=== PATIENT | male | born 1955 | race Caucasian/White ===

== ENCOUNTER 2024-02-03 14:57 | Inpatient (IN) | payer BC, SELFPAY ==
[2024-02-03] VITALS (8 sets, daily range): BP systolic 115–160; BP diastolic 69–98; BMI 36.2
[2024-02-03] MEDS: MOTRIN 400 MG PO (09:44)
[2024-02-03 09:46] LABS: % Basophils 0.4 % (0-2); % Eosinophils 0.7 % (0-6); % Immature Granulocytes 0.3 % (0-0.5); % Lymphocytes 5.4 % (20.5-51.1); % Monocytes 4.5 % (1.7-9.3); % Neutrophils 88.7 % (42.2-75.2); Absolute Basophils 0.1 10^3/uL (0-0.2); Absolute Eosinophils 0.1 10^3/uL (0-0.7); Absolute Immature Granulocytes 0.1 10^3/uL (0-0.05); Absolute Lymphocytes 0.8 10^3/uL (1.2-3.4); Absolute Monocytes 0.7 10^3/uL (0.1-0.6); Absolute Neutrophils 13.9 10^3/uL (1.4-6.5); Hematocrit 44.6 % (39.0-52.0); Mean Corp Hgb Conc. 33.6 g/dL (33.0-37.0); Mean Corpuscular Hgb 28.5 pg (27.0-31.0); Mean Corpuscular Volume 84.8 fL (80.0-94.0); Nucleated Red Blood Cells % 0 % (-); Platelet Count 243 10^3/uL (130-400); Red Blood Cell Count 5.26 10^6/uL (4.70-6.10); Red Cell Dist. Width 18.4 % (11.5-14.5); White Blood Cell Count 15.7 10^3/uL (4.8-10.8)
[2024-02-03] MEDS: NSS 500 IV (09:47)
[2024-02-03 09:49] LABS: Urine Albumin Negative (Neg - Trace); Urine Bilirubin Negative (Negative); Urine Character Clear (Clear); Urine Color Yellow; Urine Glucose Negative (Negative); Urine Ketone Negative (Negative); Urine Leukocyte Negative (Negative); Urine Nitrite Negative (Negative); Urine Occult Blood Negative (Negative); Urine Specific Gravity 1.015 (<1.030); Urine Urobilinogen Negative (Neg - 1+)
[2024-02-03 09:58] LABS: Lactic Acid 3.2 mmol/L (0.7-2.0)
[2024-02-03 10:07] LABS: Blood Urea Nitrogen 23 mg/dl (9-20); Calcium 9.5 mg/dl (8.4-10.2); Carbon Dioxide 29 mmol/L (22-30); Chloride 103 mmol/L (98-107); Estimated Creatinine Clearance 93 ml/min; Glucose 128 mg/dl (70-99); Sodium 139 mmol/L (135-145); eGFR > 60.00
[2024-02-03 10:07] LABS: COVID-19 Antigen Negative (Negative)
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
[2024-02-03] MEDS: MAXIPIME 1000 MG IV (13:23)
--- NOTE | 2024-02-03 14:00 | PHANOTE ---
med rec note- patient did answer mot question about his medication properly but he started to not make sense at the end of the list. did try to call the number for the spouse on file but he went straight to vice mail and the second time I called it
hung up
[2024-02-03 14:02] LABS: Lactic Acid 2.2 mmol/L (0.7-2.0)
[2024-02-03] MEDS: ROXICODONE 20 MG PO (14:23)
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
[2024-02-03] MEDS: VANCOCIN 540 MG IV (15:11)
[2024-02-03] MEDS: NSS 1000 IV ×2 (17:53→23:43)
[2024-02-03] MEDS: LIPITOR 40 MG PO (17:58)
[2024-02-03] MEDS: SINGULAIR 10 MG PO (17:59)
[2024-02-03] MEDS: LOVENOX 40 MG SC (17:59)
--- NOTE | 2024-02-03 19:22 | PTCARENOTE ---
Received patient this afternoon from ED. Pt oriented to room. IV fatouo hanging from ED. Made patient comfortable. Cont to assess patient status.
[2024-02-03] MEDS: SYMBICORT 160/4.5 MCG INHALER 2 PUFF INH (19:31)
[2024-02-03] MEDS: VIBRAMYCIN 100 MG PO (21:07)
[2024-02-03] MEDS: ROXICODONE 40 MG PO (21:07)
[2024-02-03] MEDS: LYRICA 100 MG PO (22:37)
[2024-02-04] MEDS: SYNTHROID 100 MCG PO (05:27)
[2024-02-04 07:30] VITALS: BP 114/65
--- NOTE | 2024-02-04 07:36 | W.PN.HOSP.TC ---
Addendum entered and electronically signed by Santiago Irene MD 02/05/24 09:31:
please see same day update note for additional details. Read reviewed and agree.
Yonny Irene MD
Original Note:
Today's Communication/Plan
-
.
Assessment / Plan
Assessment / Plan
Sepsis
- secondary to pneumonia as evidenced by chest x-ray, CT and clinical presentation
� Pending blood cultures
� Elevated lactic acid, downtrending. Patient on maintenance IVF
� Continue antibiotics: IV Rocephin and Doxycycline
� Due to history of thyroid cancer and thyroidectomy procalcitonin may show minimal value
Acute Hypoxemic Respiratory Failure
- resolved
Asthma
� Continue Respimat, fluticasone, montelukast
Hyperlipidemia
� Continue atorvastatin
Chronic leg pain
� Continue oxycodone and Lyrica
- Patient on 40 mg twice daily
- PDMP verified (2 20 mg pills twice daily Home meds)
-Continue home meds
GERD
� Continue omeprazole
DVT prophylaxis
� Start Lovenox 40 PMD
Rheumatoid arthritis/psoriatic arthritis
� Continue colchicine
Chest CT: No central pulmonary embolism. Suboptimal evaluation of the segmental and subsegmental pulmonary arterial vasculature due to suboptimal opacification. Bilateral multifocal pneumonia. Dilated pulmonary artery trunk in the setting of PAH.
Chest chest x-ray: Suspected left lung pneumonia with likely some degree of superimposed mild interstitial pulmonary edema.
FULL
Anticipated Discharge: 24 - 48 hours
Subjective/Interval History
-
Date of Service: February 04, 2024
Patient is a 68-year-old male with 1 week of fever admitted to the hospital for sepsis secondary to pneumonia. Patient states that he is feeling significantly better today. He is feeling conscious and not confused. He states he recalls little of
what happened during his admission yesterday. He he states he has no headaches, no nausea, no vomiting, no diarrhea, no stomach pain, no chest pain, no shortness of breath, no numbness or tingling in extremities, or dizziness. He states his
appetite has been good. He states he would like to stay 1 more day to improve strength and have opportunity to mobilize prior to discharge home.
Objective Data
-
Labs:
Laboratory Results
02/04/24
06:00
WBC Pending
Hgb Pending
Hct Pending
Plt Count Pending
Sodium Pending
Potassium Pending
Chloride Pending
Carbon Dioxide Pending
BUN Pending
Creatinine Pending
Glucose Pending
Calcium Pending
Total Bilirubin Pending
AST Pending
ALT Pending
Alkaline Phosphatase Pending
Vital Signs:
Vital Signs
Temp Pulse Resp BP Pulse Ox
97.5 F 74 20 115/69 98
02/03/24 23:00 02/03/24 23:00 02/03/24 23:00 02/03/24 23:00 02/04/24 04:14
I&O
02/03/24 02/04/24 02/05/24
06:59 06:59 06:59
Intake Total 1610 / 1610
Output Total 200 / 200
Balance 1410 / 1410
Review of Systems
-
History Source: Patient
Constitutional: Reports No Symptoms
EENT: Reports No Symptoms Reported
Respiratory: Reports No Symptoms
Cardiac: Reports No Symptoms
Abdomen/GI: Reports No Symptoms
Musculoskeletal: Reports Muscle Pain
Skin: Reports No Symptoms
Neuro: Reports No Symptoms
Physical Exam
-
General: Well Developed, Well Nourished, No Apparent Distress and Comfortable
HEENT: Normocephalic, Atraumatic and Moist Mucous Membranes
Respiratory: Crackles and Non Labored Respirations
Cardiac: Murmur and Rub
GI: Soft, Nontender, Nondistended and Normal Bowel Sounds
Musculoskeletal: Other (Currently not mobile)
Skin: Warm and Dry
Neuro: AO x 3, No Motor Deficits, Central Nerve's Intact and No Sensory Deficits
Psych: Calm
Data Reviewed
-
Labs: Labs Reviewed by me and Discussed with Physician
Old Records: Reviewed
[2024-02-04] MEDS: SYMBICORT 160/4.5 MCG INHALER 2 PUFF INH ×2 (08:32→19:46)
[2024-02-04] MEDS: ROCEPHIN 1000 MG IV (09:33)
[2024-02-04] MEDS: COLCHICINE 0.6 MG PO (09:33)
[2024-02-04] MEDS: VIBRAMYCIN 100 MG PO ×2 (09:33→21:06)
[2024-02-04] MEDS: ROXICODONE 40 MG PO ×2 (09:33→21:06)
[2024-02-04] MEDS: PROTONIX 40 MG PO (09:33)
[2024-02-04] MEDS: LYRICA 100 MG PO ×2 (09:33→21:06)
[2024-02-04] MEDS: NSS 1000 IV ×2 (09:34→20:08)
[2024-02-04] MEDS: STERILE WATER FOR INJECTION 10 ML IV (09:40)
--- NOTE | 2024-02-04 10:03 | PN.CDI ---
CDI
- -
CDI:
Physician Documentation Request
Admit Date: 02/03/24 14:57
Dear Doctor Ashley,
Patient admitted for sepsis.
02/02 Hospitalist PN: 'cont standing oxycodone reviewed PDMP 40mg PO BID...Chronic leg pain � Continue oxycodone and Lyrica'
Oxycodone 40 mg PO BID administered as prescribed
If possible, please provide further specificity as outlined below:
Opioid dependence
Opioid use
Other
Use of terms such as suspected, likely, concern for, or probable (associated with a specific diagnosis that is being evaluated, monitored, or treated as if it exists) are acceptable and can be coded in the inpatient setting, when documented at the
time of discharge.
Thank you,
Qiana Hartmann RN, BSN
CDI Specialist
Available via [facility] text
Please use your independent medical judgment in providing your response.
[2024-02-04 11:00] LABS: % Basophils 0.2 % (0-2); % Eosinophils 1.4 % (0-6); % Immature Granulocytes 0.4 % (0-0.5); % Lymphocytes 9.2 % (20.5-51.1); % Monocytes 5.1 % (1.7-9.3); % Neutrophils 83.7 % (42.2-75.2); Absolute Eosinophils 0.2 10^3/uL (0-0.7); Absolute Immature Granulocytes 0.1 10^3/uL (0-0.05); Absolute Lymphocytes 1.5 10^3/uL (1.2-3.4); Absolute Monocytes 0.8 10^3/uL (0.1-0.6); Absolute Neutrophils 13.3 10^3/uL (1.4-6.5); Hemoglobin 12.8 g/dL (13.0-18.0); Mean Corpuscular Hgb 28.9 pg (27.0-31.0); Mean Corpuscular Volume 90.3 fL (80.0-94.0); Mean Platelet Volume 9.8 fL (7.4-10.4); Nucleated Red Blood Cells % 0 % (-); Platelet Count 186 10^3/uL (130-400); Red Blood Cell Count 4.43 10^6/uL (4.70-6.10); Red Cell Dist. Width 18.2 % (11.5-14.5); White Blood Cell Count 15.9 10^3/uL (4.8-10.8)
[2024-02-04 11:32] LABS: ALT (SGPT) 39 U/L (0-50); AST (SGOT) 35 U/L (17-59); Albumin 3.6 g/dl (3.5-5.0); Alkaline Phosphatase 65 U/L (38-126); Blood Urea Nitrogen 18 mg/dl (9-20); Calcium 8.7 mg/dl (8.4-10.2); Carbon Dioxide 29 mmol/L (22-30); Chloride 103 mmol/L (98-107); Estimated Creatinine Clearance 115 ml/min; Glucose 151 mg/dl (70-99); Potassium 3.7 mmol/L (3.5-5.1); Sodium 137 mmol/L (135-145); Total Bilirubin 0.8 mg/dl (0.2-1.3); Total Protein 6.3 g/dl (6.3-8.2); eGFR > 60.00
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
[2024-02-04 15:30] VITALS: BP 163/90
[2024-02-04] MEDS: LOVENOX 40 MG SC (17:41)
[2024-02-04] MEDS: LIPITOR 40 MG PO (17:41)
[2024-02-04] MEDS: SINGULAIR 10 MG PO (17:42)
[2024-02-04 19:55] VITALS: BP 135/69
[2024-02-04 23:20] VITALS: BP 125/73
--- NOTE | 2024-02-04 23:47 | W.PN.UPDATE ---
Addendum entered and electronically signed by Santiago Irene MD 02/04/24 23:53:
Attending Addendum-
I saw and evaluated the patient. I reviewed the resident�s note and agree with findings and plan as documented in the resident�s note. S- patient feels improved, but still weak. Doesnt remember events of yesterday. No new complaints. Full 12 point
ROS reviewed and negative except as documented Exam- vitals reviewed in EMR GEN-NAD heart RRR lungs decreased BS @ bases abd soft LE no edema Neuro AAO x 3
# Sepsis secondary to PNA
- CT chest personally reviewed - multifocal
- cefepime and vanco given in ed
- cont Rocephin and doxycycline day 2
- blood cx NGTD
- elevated lactate start IVF- trending down
# Acute Hypoxemic Respiratory Failure
- wean o2 for sats > 94%
# Hypothyroidism- cont levothyroxine
# Lupus/RA- monitor closely for exacerbation
# Gout- cont colchicine
# Asthma- cont combivent not in AE
# HLD- cont atorvastatin
# GERD- cont omeprazole
# Chronic Pain with opioid dependence- cont standing oxycodone reviewed PDMP 40mg PO BID
Dispo eventual DC home with
Time spent coordinating care, review of plan of care with resident, personally reviewed records in EMR, med rec, consults, notes, labs, radiology, d/w nursing- 53 mins
Original Note:
[2024-02-05] VITALS (7 sets, daily range): BP systolic 99–161; BP diastolic 57–89; O2SAT 86
[2024-02-05] MEDS: MOTRIN 400 MG PO (01:10)
[2024-02-05] MEDS: NSS 1000 IV (05:41)
[2024-02-05] MEDS: SYNTHROID 100 MCG PO (05:41)
[2024-02-05] MEDS: SYMBICORT 160/4.5 MCG INHALER 2 PUFF INH ×2 (07:45→19:55)
--- NOTE | 2024-02-05 08:03 | W.PN.HOSP.TC ---
Addendum entered and electronically signed by Santiago Irene MD 02/05/24 21:54:
Attending Addendum-
I saw and evaluated the patient. I reviewed the resident�s note and agree with findings and plan as documented in the resident�s note. S- patient complains of cough and weakness.has pleuritic chest pain. Full 12 point ROS reviewed and negative
except as documented Exam- vitals reviewed in EMR GEN-NAD heart RRR lungs decreased BS @ bases abd soft LE no edema Neuro AAO x 3
# Sepsis secondary to PNA
- CT chest personally reviewed - multifocal PNA
- cefepime and vanco given in ed
- cont Rocephin and doxycycline day 3
- blood cx NGTD
- elevated lactate- trending down
- DC IVF
- start duonebs
# Acute Hypoxemic Respiratory Failure
- wean o2 for sats > 94%
# Hypothyroidism- cont levothyroxine
# Lupus/RA- monitor closely for exacerbation
# Gout- cont colchicine
# Asthma- cont combivent not in AE start duonebs
# HLD- cont atorvastatin
# GERD- cont omeprazole
# Chronic Pain with opioid dependence- cont standing oxycodone reviewed PDMP 40mg PO BID
Dispo eventual DC home with not amenable to SNF likely in 24-48 hours
Time spent coordinating care, review of plan of care with resident, personally reviewed records in EMR, med rec, consults, notes, labs, radiology, d/w nursing- 55 mins
Original Note:
Today's Communication/Plan
-
.
Assessment / Plan
Assessment / Plan
Patient is a 68-year-old male past medical history of asthma, hypertension, hypothyroidism, lupus, gastric bypass, thyroid cancer, GERD presenting to the hospital after 1 week of fever, fatigue, cough, rhinorrhea, nausea, vomiting, lethargy,
disorientation.
Sepsis
- secondary to pneumonia as evidenced by chest x-ray, CT and clinical presentation
� Pending blood cultures
� Elevated lactic acid, downtrending. Patient on maintenance IVF
� Continue antibiotics: IV Rocephin and Doxycycline
� Due to history of thyroid cancer and thyroidectomy procalcitonin may show minimal value
Acute Hypoxemic Respiratory Failure
-Patient reported shortness of breath overnight. Oxygen increased to 6 L at 1 point. Currently at 2 L
� Patient wheezing. Crackles heard.
-Per Wells criteria, patient is low risk for PE. Continue to monitor
� Patient given DuoNebs today.
Cardiac Murmur
- new murmur appreciated in PE
- patient unaware of its presence prior to admission
- follow up outpatient with [facility] for repeat echo
Asthma
� Continue Respimat, fluticasone, montelukast
Hyperlipidemia
� Continue atorvastatin
Chronic leg pain
� Continue oxycodone and Lyrica
- Patient on 40 mg twice daily
- PDMP verified (2 20 mg pills twice daily Home meds)
-Continue home meds
GERD
� Continue omeprazole
DVT prophylaxis
� Start Lovenox 40 PMD
Rheumatoid arthritis/psoriatic arthritis
� Continue colchicine
DC Dispo likely tomorrow. Pending social work consult. [place] home to
Chest CT: No central pulmonary embolism. Suboptimal evaluation of the segmental and subsegmental pulmonary arterial vasculature due to suboptimal opacification. Bilateral multifocal pneumonia. Dilated pulmonary artery trunk in the setting of PAH.
Chest chest x-ray: Suspected left lung pneumonia with likely some degree of superimposed mild interstitial pulmonary edema.
FULL
Anticipated Discharge: Within 24 hours
Subjective/Interval History
-
Date of Service: February 05, 2024
Patient is a 68-year-old male with 1 week of fever admitted to the hospital for sepsis secondary to pneumonia. Patient states that he is feeling significantly better today. He is feeling conscious and not confused. Patient says he is feeling
about the same as yesterday. He states he has significant left-sided chest pain that radiates to his neck when he takes deep breaths. He reports overnight shortness of breath and oxygen was increased and then decreased back to 2 L this morning as
well as feeling febrile last night. Per nursing and notes, patient was afebrile. He states he ambulated yesterday for the first time since admission. He reports no headaches, dizziness, nausea, vomiting, diarrhea, abdominal pain, numbness and
tingling in the extremities or new symptoms.
Objective Data
-
Labs:
Laboratory Results
02/05/24
06:00
WBC Pending
Hgb Pending
Hct Pending
Plt Count Pending
Sodium Pending
Potassium Pending
Chloride Pending
Carbon Dioxide Pending
BUN Pending
Creatinine Pending
Glucose Pending
Calcium Pending
Total Bilirubin Pending
AST Pending
ALT Pending
Alkaline Phosphatase Pending
Vital Signs:
Vital Signs
Temp Pulse Resp BP Pulse Ox
98 F 80 14 126/77 97
02/05/24 07:41 02/05/24 07:47 02/05/24 07:47 02/05/24 07:41 02/05/24 07:41
I&O
02/04/24 02/05/24 02/06/24
06:59 06:59 06:59
Intake Total 1610 / 1610 3780 / 3780
Output Total 200 / 200 2049 / 2049
Balance 1410 / 1410 1730 / 1730
Review of Systems
-
History Source: Patient
Constitutional: Reports Fatigue and Weakness
EENT: Reports No Symptoms Reported
Respiratory: Reports Trouble Breathing and Wheezing
Cardiac: Reports Chest Pain (With inspiration, left-sided)
Abdomen/GI: Reports No Symptoms
Musculoskeletal: Reports No Symptoms
Skin: Reports No Symptoms
Neuro: Reports No Symptoms
Physical Exam
-
General: Well Developed, Well Nourished and Obese
HEENT: Normocephalic, Atraumatic, Moist Mucous Membranes and PERRLA
Respiratory: Wheezes, Crackles and Accessory Resp Muscle Use
Cardiac: Murmur
GI: Soft, Nontender, Nondistended and Normal Bowel Sounds
Neuro: AO x 3, No Motor Deficits and Central Nerve's Intact
Psych: Calm
Data Reviewed
-
Total Time Spent with Patient (in minutes): 30
Labs: Labs Reviewed by me and Discussed with Physician
Old Records: Reviewed
[2024-02-05] MEDS: ROCEPHIN 1000 MG IV (08:37)
[2024-02-05] MEDS: PROTONIX 40 MG PO (08:37)
[2024-02-05] MEDS: VIBRAMYCIN 100 MG PO ×2 (08:37→20:09)
[2024-02-05] MEDS: COLCHICINE 0.6 MG PO (08:37)
[2024-02-05] MEDS: LYRICA 100 MG PO ×2 (08:37→20:09)
[2024-02-05] MEDS: ROXICODONE 40 MG PO ×2 (08:37→20:09)
[2024-02-05] MEDS: STERILE WATER FOR INJECTION 10 ML IV (08:38)
[2024-02-05 09:13] LABS: % Basophils 0.7 % (0-2); % Eosinophils 4.6 % (0-6); % Immature Granulocytes 0.6 % (0-0.5); % Lymphocytes 20.9 % (20.5-51.1); % Neutrophils 59.2 % (42.2-75.2); Absolute Basophils 0.1 10^3/uL (0-0.2); Absolute Eosinophils 0.4 10^3/uL (0-0.7); Absolute Immature Granulocytes 0.1 10^3/uL (0-0.05); Absolute Lymphocytes 1.9 10^3/uL (1.2-3.4); Absolute Monocytes 1.2 10^3/uL (0.1-0.6); Absolute Neutrophils 5.2 10^3/uL (1.4-6.5); Hematocrit 37.3 % (39.0-52.0); Mean Corp Hgb Conc. 32.2 g/dL (33.0-37.0); Mean Corpuscular Hgb 29.2 pg (27.0-31.0); Mean Corpuscular Volume 90.8 fL (80.0-94.0); Mean Platelet Volume 10.1 fL (7.4-10.4); Nucleated Red Blood Cells % 0 % (-); Platelet Count 175 10^3/uL (130-400); Red Blood Cell Count 4.11 10^6/uL (4.70-6.10); Red Cell Dist. Width 17.9 % (11.5-14.5); White Blood Cell Count 8.8 10^3/uL (4.8-10.8)
[2024-02-05 10:30] LABS: ALT (SGPT) 33 U/L (0-50); AST (SGOT) 34 U/L (17-59); Albumin 3.4 g/dl (3.5-5.0); Alkaline Phosphatase 68 U/L (38-126); Blood Urea Nitrogen 13 mg/dl (9-20); Calcium 8.8 mg/dl (8.4-10.2); Carbon Dioxide 30 mmol/L (22-30); Chloride 105 mmol/L (98-107); Estimated Creatinine Clearance 115 ml/min; Glucose 91 mg/dl (70-99); Potassium 4.4 mmol/L (3.5-5.1); Sodium 138 mmol/L (135-145); Total Bilirubin 0.6 mg/dl (0.2-1.3); Total Protein 5.9 g/dl (6.3-8.2); eGFR > 60.00
--- NOTE | 2024-02-05 10:55 | CM ---
Met with patient at bedside; patient reported that he does not have Oxygen in the home
Plan: discharge to home when stable; will continue to monitor for needs
[2024-02-05] MEDS: DUONEB 3 ML INH (14:08)
[2024-02-05] MEDS: LIPITOR 40 MG PO (17:30)
[2024-02-05] MEDS: LOVENOX 40 MG SC (17:30)
[2024-02-05] MEDS: SINGULAIR 10 MG PO (17:31)
[2024-02-06] VITALS (7 sets, daily range): BP systolic 116–158; BP diastolic 61–88; O2SAT 85–90
[2024-02-06] MEDS: SYNTHROID 100 MCG PO (06:02)
[2024-02-06] MEDS: SYMBICORT 160/4.5 MCG INHALER 2 PUFF INH ×2 (08:07→19:39)
--- NOTE | 2024-02-06 08:14 | W.PN.HOSP.TC ---
Addendum entered and electronically signed by Santiago Irene MD 02/06/24 22:11:
Attending Addendum-
I saw and evaluated the patient. I reviewed the resident�s note and agree with findings and plan as documented in the resident�s note. S- seen walking from bathroom w/o issues. 'I think i should go tomorrow... didnt you hear i was confused
overnight and walked into the hallway?' Full 12 point ROS reviewed and negative except as documented Exam- vitals reviewed in EMR GEN-NAD heart RRR lungs decreased BS @ bases abd soft LE no edema Neuro AAO x 3
# Sepsis secondary to PNA
- CT chest- multifocal PNA
- cefepime and vanco given in ed
- cont Rocephin and doxycycline day 4
- blood cx NGTD
- elevated lactate- trending down
- DC IVF
- cont duonebs
# Acute Hypoxemic Respiratory Failure
- attempted to wean o2 for sats > 92%
- will need home o2 on DC
- scripts faxed cm made aware
# Hypothyroidism- cont levothyroxine
# Lupus/RA- monitor closely for exacerbation
# Gout- cont colchicine
# Asthma- cont combivent not in AE cont duonebs
# HLD- cont atorvastatin
# GERD- cont omeprazole
# Chronic Pain with opioid dependence- cont standing oxycodone reviewed PDMP 40mg PO BID
Dispo eventual DC home with not amenable to SNF likely in AM
Time spent coordinating care, review of plan of care with resident, personally reviewed records in EMR, med rec, consults, notes, labs, radiology, d/w nursing- 52 mins
Original Note:
Today's Communication/Plan
-
.
Assessment / Plan
Assessment / Plan
Patient is a 68-year-old male past medical history of asthma, hypertension, hypothyroidism, lupus, gastric bypass, thyroid cancer, GERD presenting to the hospital after 1 week of fever, fatigue, cough, rhinorrhea, nausea, vomiting, lethargy,
disorientation.
Sepsis
- secondary to pneumonia as evidenced by chest x-ray, CT and clinical presentation
� Pending blood cultures
� Elevated lactic acid, downtrending. Patient on maintenance IVF
� Continue antibiotics: IV Rocephin and Doxycycline
� Due to history of thyroid cancer and thyroidectomy procalcitonin may show minimal value
Acute Hypoxemic Respiratory Failure
-Patient reported shortness of breath overnight. Oxygen increased to 6 L at 1 point. Currently at 2 L
� wheezing resolved.
-Per Wells criteria, patient is low risk for PE. Continue to monitor
� Patient given DuoNebs 02/04.
- home O2 assessment pending
Cardiac Murmur
- new murmur appreciated in PE
- patient unaware of its presence prior to admission
- follow up outpatient with [place] [facility] for repeat echo
Asthma
� Continue Respimat, fluticasone, montelukast
Hyperlipidemia
� Continue atorvastatin
Chronic leg pain
� Continue oxycodone and Lyrica
- Patient on 40 mg twice daily
- PDMP verified (2 20 mg pills twice daily Home meds)
-Continue home meds
GERD
� Continue omeprazole
DVT prophylaxis
� Start Lovenox 40 PMD
Rheumatoid arthritis/psoriatic arthritis
� Continue colchicine
DC Dispo likely tomorrow. Pending social work consult. [place] home to
Chest CT: No central pulmonary embolism. Suboptimal evaluation of the segmental and subsegmental pulmonary arterial vasculature due to suboptimal opacification. Bilateral multifocal pneumonia. Dilated pulmonary artery trunk in the setting of PAH.
Chest chest x-ray: Suspected left lung pneumonia with likely some degree of superimposed mild interstitial pulmonary edema.
FULL
Anticipated Discharge: Within 24 hours
Subjective/Interval History
-
Date of Service: February 06, 2024
Patient is a 68-year-old male past medical history of asthma, hypertension, hypothyroidism, lupus, gastric bypass, thyroid cancer, GERD presenting to the hospital after 1 week of fever, fatigue, cough, rhinorrhea, nausea, vomiting, lethargy,
disorientation. Patient states that he is feeling the same as yesterday however last night had an episode of confusion where he woke up and was agitated per his recollection. He states the nursing team told him to go back to sleep.
Confusion/delirium lasted for about 30 minutes. Patient reports no headaches, nausea, vomiting, diarrhea, shortness of breath, chest pain, abdominal pain, pain in extremities.
Objective Data
-
Labs:
Laboratory Results
02/06/24
07:42
WBC Pending
Hgb Pending
Hct Pending
Plt Count Pending
Sodium Pending
Potassium Pending
Chloride Pending
Carbon Dioxide Pending
BUN Pending
Creatinine Pending
Glucose Pending
Calcium Pending
Vital Signs:
Vital Signs
Temp Pulse Resp BP Pulse Ox
98.4 F 74 16 158/88 94
02/06/24 03:00 02/06/24 08:09 02/06/24 08:09 02/06/24 03:00 02/06/24 08:09
I&O
02/05/24 02/06/24 02/07/24
06:59 06:59 06:59
Intake Total 3780 / 3780 1679 / 1680
Output Total 2049
Balance 1730 / 1730 1680 / 1680
Review of Systems
-
History Source: Patient
Constitutional: Reports Sleep Disturbance
EENT: Reports No Symptoms Reported
Respiratory: Reports Trouble Breathing (Mild) and Other (Pain with inspiration on left side)
Cardiac: Reports No Symptoms
Abdomen/GI: Reports No Symptoms
Musculoskeletal: Reports No Symptoms
Skin: Reports No Symptoms
Neuro: Reports No Symptoms
Physical Exam
-
General: Well Developed, Well Nourished, No Apparent Distress and Comfortable
HEENT: Normocephalic and Atraumatic
Respiratory: Crackles (Mild)
Cardiac: Murmur
GI: Soft, Nontender, Nondistended and Normal Bowel Sounds
Skin: Warm and Dry
Neuro: AO x 3, No Motor Deficits, Central Nerve's Intact and No Sensory Deficits
Psych: Calm
[2024-02-06 08:23] LABS: % Basophils 0.8 % (0-2); % Eosinophils 4.5 % (0-6); % Immature Granulocytes 0.2 % (0-0.5); % Monocytes 13.5 % (1.7-9.3); Absolute Basophils 0.1 10^3/uL (0-0.2); Absolute Eosinophils 0.4 10^3/uL (0-0.7); Absolute Lymphocytes 1.8 10^3/uL (1.2-3.4); Absolute Monocytes 1.2 10^3/uL (0.1-0.6); Absolute Neutrophils 5.2 10^3/uL (1.4-6.5); Hematocrit 36.9 % (39.0-52.0); Hemoglobin 11.9 g/dL (13.0-18.0); Mean Corp Hgb Conc. 32.2 g/dL (33.0-37.0); Mean Corpuscular Hgb 28.5 pg (27.0-31.0); Mean Corpuscular Volume 88.5 fL (80.0-94.0); Mean Platelet Volume 10.1 fL (7.4-10.4); Nucleated Red Blood Cells % 0 % (-); Platelet Count 199 10^3/uL (130-400); Red Blood Cell Count 4.17 10^6/uL (4.70-6.10); Red Cell Dist. Width 17.6 % (11.5-14.5); White Blood Cell Count 8.7 10^3/uL (4.8-10.8)
[2024-02-06 09:08] LABS: Blood Urea Nitrogen 14 mg/dl (9-20); Carbon Dioxide 30 mmol/L (22-30); Chloride 100 mmol/L (98-107); Estimated Creatinine Clearance 102 ml/min; Glucose 99 mg/dl (70-99); Potassium 3.9 mmol/L (3.5-5.1); Sodium 137 mmol/L (135-145); eGFR > 60.00
[2024-02-06] MEDS: ROXICODONE 40 MG PO ×2 (09:40→21:40)
[2024-02-06] MEDS: LYRICA 100 MG PO ×2 (09:41→20:51)
[2024-02-06] MEDS: PROTONIX 40 MG PO (09:41)
[2024-02-06] MEDS: STERILE WATER FOR INJECTION 10 ML IV (09:41)
[2024-02-06] MEDS: VIBRAMYCIN 100 MG PO ×2 (09:41→20:51)
[2024-02-06] MEDS: COLCHICINE 0.6 MG PO (09:41)
[2024-02-06] MEDS: ROCEPHIN 1000 MG IV (09:42)
[2024-02-06] MEDS: FLUSH (NSS) 2 FLUSH IV (09:42)
--- NOTE | 2024-02-06 13:50 | CM ---
Patient seen bedside, discussed patient qualifies for home O2. Per resident, patient will discharge tomorrow. CM will fax script/clinicals to [place] with [employer] for home O2. CM will continue to follow for all discharge planning needs.
Plan; home with home O2 pending [employer].
[2024-02-06] MEDS: LOVENOX 40 MG SC (18:05)
[2024-02-06] MEDS: LIPITOR 40 MG PO (18:05)
[2024-02-06] MEDS: SINGULAIR 10 MG PO (18:05)
[2024-02-07 03:48] VITALS: BP 147/86
[2024-02-07] MEDS: SYNTHROID 100 MCG PO (04:51)
[2024-02-07 07:35] VITALS: BP 157/90
[2024-02-07] MEDS: SYMBICORT 160/4.5 MCG INHALER 2 PUFF INH (07:40)
--- NOTE | 2024-02-07 08:01 | W.PN.HOSP.TC ---
Addendum entered and electronically signed by Santiago Irene MD 02/07/24 22:54:
Attending Addendum-
I saw and evaluated the patient. I reviewed the resident�s note and agree with findings and plan as documented in the resident�s note. S- feels back to baseline ready to go home Full 12 point ROS reviewed and negative except as documented Exam-
vitals reviewed in EMR GEN-NAD heart RRR lungs decreased BS @ bases abd soft LE no edema Neuro AAO x 3
# Sepsis secondary to PNA
- CT chest- multifocal PNA
- cefepime and vanco given in ed
- Rocephin and doxycycline day 5--> transition ot PO abx on DC
- blood cx NGTD
# Acute Hypoxemic Respiratory Failure
- attempted to wean o2 for sats > 92%
- DC home on NEW o2
- scripts faxed cm made aware
# Hypothyroidism- cont levothyroxine
# Lupus/RA- monitor closely for exacerbation
# Gout- cont colchicine
# Asthma- cont combivent not in AE
# HLD- cont atorvastatin
# GERD- cont omeprazole
# Chronic Pain with opioid dependence- cont standing oxycodone reviewed PDMP 40mg PO BID
Dispo DC home with not amenable to SNF - TODAY!
Time spent coordinating care, DC planning, review of DC plan of care with resident, transition of care, review of records, med rec/scripts sent electronically, NEW O2, consults, notes, d/w consultants, nursing, and CM� 37 mins
Original Note:
Today's Communication/Plan
-
.
Assessment / Plan
Assessment / Plan
Patient is a 68-year-old male past medical history of asthma, hypertension, hypothyroidism, lupus, gastric bypass, thyroid cancer, GERD presenting to the hospital after 1 week of fever, fatigue, cough, rhinorrhea, nausea, vomiting, lethargy,
disorientation.
Sepsis
- secondary to pneumonia as evidenced by chest x-ray, CT and clinical presentation
� Pending blood cultures
� Elevated lactic acid, downtrending.
� Continue antibiotics: 4 days of doxycyline and cefuroxime at home
Acute Hypoxemic Respiratory Failure
-Patient reported shortness of breath overnight. Oxygen increased to 6 L at 1 point. Currently at 2 L
� wheezing resolved.
- Per Wells criteria, patient is low risk for PE. Continue to monitor
� Patient given DuoNebs 02/04.
- home O2 assessment completed 02/05
- home O2 to be set up at time of DC
Cardiac Murmur
- new murmur appreciated in PE
- patient unaware of its presence prior to admission
- follow up outpatient with [place] [facility] for repeat echo
Asthma
� Continue Respimat, fluticasone, montelukast
Hyperlipidemia
� Continue atorvastatin
Chronic leg pain
� Continue oxycodone and Lyrica
- Patient on 40 mg twice daily
- PDMP verified (2 20 mg pills twice daily Home meds)
-Continue home meds
GERD
� Continue omeprazole
DVT prophylaxis
� Start Lovenox 40 PMD
Rheumatoid arthritis/psoriatic arthritis
� Continue colchicine
DC Dispo today home to
Chest CT: No central pulmonary embolism. Suboptimal evaluation of the segmental and subsegmental pulmonary arterial vasculature due to suboptimal opacification. Bilateral multifocal pneumonia. Dilated pulmonary artery trunk in the setting of PAH.
Chest chest x-ray: Suspected left lung pneumonia with likely some degree of superimposed mild interstitial pulmonary edema.
FULL
Anticipated Discharge: Within 24 hours
Anticipated Discharge: Today
Subjective/Interval History
-
Date of Service: February 07, 2024
Feels better today. Significantly less pain with inspiration. No other symptoms. Nursing states that he was confused last night, but is aware of the confusion. Patient states he is ready to go home
Objective Data
-
Labs:
Laboratory Results
08/02/24
06:00
WBC Pending
Hgb Pending
Hct Pending
Plt Count Pending
Sodium Pending
Potassium Pending
Chloride Pending
Carbon Dioxide Pending
BUN Pending
Creatinine Pending
Glucose Pending
Calcium Pending
Vital Signs:
Vital Signs
Temp Pulse Resp BP Pulse Ox
98.3 F 68 16 147/86 92
02/07/24 03:48 02/07/24 07:41 02/07/24 07:41 02/07/24 03:48 02/07/24 07:41
I&O
02/06/24 02/07/24 02/08/24
06:59 06:59 06:59
Intake Total 1680 / 1680 1200 / 1200
Output Total 1380 / 1380
Balance 1680 / 1680 -180 / -180
Review of Systems
-
History Source: Patient
Constitutional: Reports No Symptoms
EENT: Reports No Symptoms Reported
Respiratory: Reports No Symptoms
Cardiac: Reports No Symptoms
Abdomen/GI: Reports No Symptoms
Genitourinary: Reports No Symptoms
Musculoskeletal: Reports No Symptoms
Skin: Reports No Symptoms
Neuro: Reports Other (Confusion)
Physical Exam
-
General: Well Developed, Well Nourished, No Apparent Distress and Comfortable
HEENT: Normocephalic and Atraumatic
Respiratory: Clear to Auscultation
Cardiac: Murmur
GI: Soft, Nontender, Nondistended and Normal Bowel Sounds
Musculoskeletal: No Clubbing, No Cyanosis and No Edema
Skin: Warm and Dry
Neuro: AO x 3, No Motor Deficits and No Sensory Deficits
Psych: Calm
Data Reviewed
-
Total Time Spent with Patient (in minutes): 20
Labs: Labs Reviewed by me and Discussed with Physician
Old Records: Reviewed
[2024-02-07 09:12] LABS: Hemoglobin 13.5 g/dL (13.0-18.0); Mean Corp Hgb Conc. 32.9 g/dL (33.0-37.0); Mean Corpuscular Hgb 28.7 pg (27.0-31.0); Mean Corpuscular Volume 87.2 fL (80.0-94.0); Mean Platelet Volume 10.2 fL (7.4-10.4); Platelet Count 203 10^3/uL (130-400); Red Cell Dist. Width 17.2 % (11.5-14.5); White Blood Cell Count 6.8 10^3/uL (4.8-10.8)
[2024-02-07 09:54] LABS: Blood Urea Nitrogen 15 mg/dl (9-20); Calcium 9.6 mg/dl (8.4-10.2); Carbon Dioxide 27 mmol/L (22-30); Chloride 102 mmol/L (98-107); Estimated Creatinine Clearance 115 ml/min; Glucose 84 mg/dl (70-99); Sodium 139 mmol/L (135-145); eGFR > 60.00
[2024-02-07] MEDS: LYRICA 100 MG PO (09:54)
[2024-02-07] MEDS: FLUSH (NSS) 2 FLUSH IV (09:54)
[2024-02-07] MEDS: VIBRAMYCIN 100 MG PO (09:54)
[2024-02-07] MEDS: STERILE WATER FOR INJECTION 10 ML IV (09:54)
[2024-02-07] MEDS: ROCEPHIN 1000 MG IV (09:54)
[2024-02-07] MEDS: COLCHICINE 0.6 MG PO (09:54)
[2024-02-07] MEDS: PROTONIX 40 MG PO (09:54)
[2024-02-07] MEDS: ROXICODONE 40 MG PO (09:57)
--- NOTE | 2024-02-07 10:26 | W.DCSUMMARY ---
Addendum entered and electronically signed by Santiago Irene MD 02/07/24 23:04:
Read, reviewed, and agree. See same day progress note for additional details.
Yonny Irene MD
Original Note:
Documented by User: Polina Ramirez DO, Resident 02/07/24 17:11
Discharge Summary
Discharge Data
Date of Admission: 02/03/24
Date of Discharge: 02/07/24
Total time spent discharging patient (in min): 30
-
Pending Results: No
Hospital Course
Problem list:
Sepsis: secondary to pneumonia as evidenced by chest x-ray, CT and clinical presentation. Patient discharged on 4 days of doxycyline and cefuroxime at home
Acute Hypoxemic Respiratory Failure: Improved. Home O2 given
Cardiac Murmur: new murmur appreciated. follow up outpatient with [place] [facility] for repeat echo.
Asthma: Continue Respimat, fluticasone, montelukast
Hyperlipidemia: Continue atorvastatin
Chronic leg pain: Continue oxycodone and Lyrica. Patient on 40 mg twice daily. Continue home medication regimen.
GERD: Continue omeprazole
Rheumatoid arthritis/psoriatic arthritis: Continue colchicine
Patient is a 68-year-old male with past medical history of asthma, hypertension, hypothyroidism, lupus, gastric bypass, thyroid cancer, GERD presenting to the hospital after 1 week of fever, fatigue, cough, rhinorrhea, nausea, vomiting, lethargy,
disorientation. ECG showed sinus tachycardia with PACs. Chest x-ray showed suspected left lung pneumonia with likely some degree of superimposed mild interstitial pulmonary edema. Chest CT showed no central pulmonary embolism. Bilateral
multifocal pneumonia. Patient was started on IV Rocephin and doxycycline for management. Continue home asthma medication, atorvastatin, oxycodone (PDMP verified) and Lyrica, omeprazole, and colchicine. Started patient on Lovenox for DVT
prophylaxis. Patient was put on O2 to assist with hypoxia. Patient had nighttime acute delirium events lasting up to 30 minutes. Patient and nursing stated resolved on own. Possibly secondary due to inconsistent oxygen use at night. Patient
counseled on importance of utilizing home oxygen as needed, especially at night.
Discharge Plan
-
Patient Disposition: Home (Routine Discharge)
Discharge Diagnosis/Procedures: Sepsis secondary to pneumonia
Condition: Fair
Diet: Regular
Activity: No restrictions and As tolerated
Driving Restrictions: As prior to admission
Bathing Restrictions: None
Additional Discharge Medication Instructions: Follow up with cardiology and PCP outpatient in 1-2 weeks
Prescriptions:
New
doxycycline hyclate 100 mg Capsule
100 mg PO BID 4 Days Qty: 8 0RF
cefuroxime axetil 500 mg tablet
500 mg PO BID 4 Days Qty: 8 0RF
Continued
omeprazole 20 MG capsule,delayed release(DR/EC)
40 mg PO DAILY
atorvastatin 40 MG tablet
40 mg PO QPM
Patient Comments:
NO PHARMACY FILLS
levothyroxine 100 MCG tablet
100 mcg PO DAILY AT 0700
montelukast 10 MG tablet
10 mg PO QPM
Combivent Respimat 1 PUFF mist
2 puff inhalation R Q4HPRN PRN (Reason: SOB/WHEEZING)
colchicine [Mitigare] 0.6 MG capsule
0.6 mg PO DAILY
pregabalin [Lyrica] 100 mg Capsule
100 mg PO BID
oxycodone 20 mg Tablet
40 mg PO BID
fluticasone furoate-vilanterol [Breo Ellipta] 200-25 mcg/dose Blister With Device
1 inh INHALATION R DAILY
Discharge Orders:
Discharge Patient (As Directed); Ordered 02/07/24
Ordered By: Polina Ramirez
Discharge Date and Time
Discharge Date/Time: 02/07/24 17:01
Print Language: [place] LEONE[place]

Documented by User: Santiago Irene MD 02/07/24 22:52
Discharge Summary
Discharge Data
Date of Admission: 02/03/24
Date of Discharge: 02/07/24
Discharge Plan
-
Patient Disposition: Home (Routine Discharge)
Discharge Diagnosis/Procedures: Sepsis secondary to pneumonia
Condition: Fair
Diet: Regular
Activity: No restrictions and As tolerated
Driving Restrictions: As prior to admission
Bathing Restrictions: None
Additional Discharge Medication Instructions: Follow up with cardiology and PCP outpatient in 1-2 weeks
Prescriptions:
New
doxycycline hyclate 100 mg Capsule
100 mg PO BID 4 Days Qty: 8 0RF
cefuroxime axetil 500 mg tablet
500 mg PO BID 4 Days Qty: 8 0RF
Continued
omeprazole 20 MG capsule,delayed release(DR/EC)
40 mg PO DAILY
atorvastatin 40 MG tablet
40 mg PO QPM
Patient Comments:
NO PHARMACY FILLS
levothyroxine 100 MCG tablet
100 mcg PO DAILY AT 0700
montelukast 10 MG tablet
10 mg PO QPM
Combivent Respimat 1 PUFF mist
2 puff inhalation R Q4HPRN PRN (Reason: SOB/WHEEZING)
colchicine [Mitigare] 0.6 MG capsule
0.6 mg PO DAILY
pregabalin [Lyrica] 100 mg Capsule
100 mg PO BID
oxycodone 20 mg Tablet
40 mg PO BID
fluticasone furoate-vilanterol [Breo Ellipta] 200-25 mcg/dose Blister With Device
1 inh INHALATION R DAILY
Discharge Orders:
Discharge Patient (As Directed); Ordered 02/07/24
Ordered By: Polina Ramirez
Discharge Date and Time
Discharge Date/Time: 02/07/24 17:01
Print Language: [place] LEONE[place]
--- NOTE | 2024-02-07 11:23 | CM ---
Patient seen bedside, discussed oxygen approved through [facility], tank will be delivered bedside around 12:00 p.m. Provided patient with [facility] local branch number to call upon discharge for concentrator to be delivered to home. CM will continue to
follow for all discharge planning needs.
Plan; home with , oxygen delivery by [employer].
[2024-02-07 11:26] VITALS: BP 153/92
[2024-02-07 15:32] VITALS: BP 137/85
== END 2024-02-07 17:01 | disposition home or self-care (01) | DRG 871 ==
LOC: 4 EAST ACU 14:57
PROVIDERS: Student in an Organized Health Care Education/Training Program; ADMITTING PHYSICIAN Family Medicine; EMERGENCY PHYSICIAN Emergency Medicine
PROC: 5A0935A Assistance with Respiratory Ventilation, Less than 24 Consecutive Hours, High Flow/Velocity Cannula (ICD-10-PCS; 2024-02-04)
DX: A41.9 Sepsis, unspecified organism (principal); G93.41 Metabolic encephalopathy; J18.9 Pneumonia, unspecified organism; J96.01 Acute respiratory failure with hypoxia; F11.20 Opioid dependence, uncomplicated; L40.50 Arthropathic psoriasis, unspecified; M06.9 Rheumatoid arthritis, unspecified; J45.909 Unspecified asthma, uncomplicated; E89.0 Postprocedural hypothyroidism; F32.A Depression, unspecified; I10 Essential (primary) hypertension; M10.9 Gout, unspecified; E78.5 Hyperlipidemia, unspecified; K21.9 Gastro-esophageal reflux disease without esophagitis; G89.29 Other chronic pain; F41.9 Anxiety disorder, unspecified; R01.1 Cardiac murmur, unspecified; Z79.890 Hormone replacement therapy; Z79.899 Other long term (current) drug therapy; Z86.718 Personal history of other venous thrombosis and embolism; Z87.19 Personal history of other diseases of the digestive system; Z85.850 Personal history of malignant neoplasm of thyroid; Z90.49 Acquired absence of other specified parts of digestive tract; Z98.84 Bariatric surgery status
CPT/HCPCS: 71045; 71275; 80048; 80053; 81003; 83605; 85025; 85027; 87040; 87811; 93005; 94640; 94761; 96361; 96374; 99291; Q9967

== ENCOUNTER 2024-09-17 23:17 | Emergency (ER) | payer OTHER, SELFPAY ==
[2024-09-17 23:20] VITALS: BP 138/86
[2024-09-17 23:22] VITALS: BP 138/86
[2024-09-17 23:54] LABS: % Basophils 0.5 % (0-2); % Eosinophils 3.8 % (0-6); % Immature Granulocytes 0.4 % (0-0.5); % Lymphocytes 13.1 % (20.5-51.1); % Monocytes 7.4 % (1.7-9.3); % Neutrophils 74.8 % (42.2-75.2); Absolute Basophils 0.1 10^3/uL (0-0.2); Absolute Eosinophils 0.5 10^3/uL (0-0.7); Absolute Immature Granulocytes 0.1 10^3/uL (0-0.05); Absolute Lymphocytes 1.7 10^3/uL (1.2-3.4); Absolute Neutrophils 9.6 10^3/uL (1.4-6.5); Hemoglobin 15.6 g/dL (13.0-18.0); Mean Corp Hgb Conc. 32.5 g/dL (33.0-37.0); Mean Corpuscular Hgb 30.6 pg (27.0-31.0); Mean Corpuscular Volume 94.1 fL (80.0-94.0); Mean Platelet Volume 10.1 fL (7.4-10.4); Nucleated Red Blood Cells % 0 % (-); Platelet Count 232 10^3/uL (130-400); Red Cell Dist. Width 14.7 % (11.5-14.5); White Blood Cell Count 12.9 10^3/uL (4.8-10.8)
[2024-09-18] VITALS: BP 139/89
[2024-09-18 00:11] LABS: ALT (SGPT) 48 U/L (0-50); AST (SGOT) 56 U/L (17-59); Albumin 4.1 g/dl (3.5-5.0); Alkaline Phosphatase 100 U/L (38-126); Blood Urea Nitrogen 23 mg/dl (9-20); Calcium 9.6 mg/dl (8.4-10.2); Carbon Dioxide 32 mmol/L (22-30); Chloride 101 mmol/L (98-107); Estimated Creatinine Clearance 115 ml/min; Glucose 123 mg/dl (70-99); Potassium 4.4 mmol/L (3.5-5.1); Sodium 139 mmol/L (135-145); Total Bilirubin 0.5 mg/dl (0.2-1.3); Total Protein 7.1 g/dl (6.3-8.2); eGFR > 60.00
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
[2024-09-18 01:00] VITALS: BP 131/71
[2024-09-18 01:48] LABS: Urine Albumin Negative (Neg - Trace); Urine Bilirubin Negative (Negative); Urine Character Clear (Clear); Urine Color Yellow; Urine Glucose Negative (Negative); Urine Ketone Negative (Negative); Urine Leukocyte Negative (Negative); Urine Nitrite Negative (Negative); Urine Occult Blood Negative (Negative); Urine Specific Gravity 1.015 (<1.030); Urine Urobilinogen Negative (Neg - 1+); Urine pH 6.5 (5.0-9.0)
[2024-09-18 02:19] LABS: Creatine Phosphokinase 64 U/L (55-170)
[2024-09-18 03:00] VITALS: BP 124/64
[2024-09-18] MEDS: OXYCONTIN (CONTROLLED RELEASE) 40 MG PO (03:02)
== END 2024-09-18 06:38 | disposition home or self-care (01) ==
LOC: EMR 23:17
PROVIDERS: Student in an Organized Health Care Education/Training Program; EMERGENCY PHYSICIAN Emergency Medicine
DX: G56.32 Lesion of radial nerve, left upper limb (principal); E03.9 Hypothyroidism, unspecified; E78.00 Pure hypercholesterolemia, unspecified; I10 Essential (primary) hypertension; J45.909 Unspecified asthma, uncomplicated; Z85.850 Personal history of malignant neoplasm of thyroid; Z90.49 Acquired absence of other specified parts of digestive tract; R29.6 Repeated falls
CPT/HCPCS: 99284; 70450; 72125; 73030; 80053; 81003; 82550; 85025; 93005

== ENCOUNTER 2025-01-21 14:41 | Inpatient (IN) | payer OTHER, SELFPAY ==
[2025-01-21] VITALS (33 sets, daily range): BP systolic 106–159; BP diastolic 68–129; BMI 33.4; BMI 35.0
[2025-01-21 11:36] LABS: Glucose - Point of Care 124 mg/dl (70-99)
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
[2025-01-21 12:13] LABS: Hematocrit 42.4 % (39.0-52.0); Hemoglobin 14.2 g/dL (13.0-18.0); Mean Corp Hgb Conc. 33.5 g/dL (33.0-37.0); Mean Corpuscular Volume 88.0 fL (80.0-94.0); Nucleated Red Blood Cells % 0 % (-); Platelet Count 212 10^3/uL (130-400); Red Cell Dist. Width 13.9 % (11.5-14.5)
[2025-01-21 12:19] LABS: Ammonia 10 umol/L (9-30)
[2025-01-21 12:20] LABS: ALT (SGPT) 27 U/L (0-50); AST (SGOT) 37 U/L (17-59); Albumin 4.2 g/dl (3.5-5.0); Alkaline Phosphatase 79 U/L (38-126); Blood Urea Nitrogen 16 mg/dl (9-20); Calcium 9.4 mg/dl (8.4-10.2); Carbon Dioxide 30 mmol/L (22-30); Chloride 101 mmol/L (98-107); Estimated Creatinine Clearance 112 ml/min; Glucose 138 mg/dl (70-99); INR 1.00; PT 13.7 Sec (11.4-14.6); Potassium 4.3 mmol/L (3.5-5.1); Sodium 137 mmol/L (135-145); Total Protein 7.3 g/dl (6.3-8.2); eGFR > 60.00
[2025-01-21 12:21] LABS: APTT 25.0 Sec (23.4-35.0)
[2025-01-21] MEDS: ASPIR LOW (ENTERIC COATED) 81 MG PO (12:27)
[2025-01-21] MEDS: ROXICODONE 40 MG PO (14:00)
[2025-01-21] MEDS: MAXIPIME 2000 MG IV (14:01)
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
[2025-01-21] MEDS: VANCOCIN 540 MG IV (15:07)
--- NOTE | 2025-01-21 15:46 | CM ---
Met with patient and spouse at bedside in the ED
Pharmacy verified: [facility] @ [address] [facility]
Family Physician: Monalisa Pearson MD, [address], [place], [place];
Patient lives w/ spouse; multilevel home; no steps to enter; 13 steps to 2nd floor bedroom and bath w/ stall shower, shower bench; powder room 1st floor
PLOF: reported he was independent with ambulation, stairs, and ADLs; does not drive, retired; NO DME
NO SNF or Home Health utilization history
will transport home
Plan: Anticipate discharge to home when medically stable; Case Management will monitor for discharge needs/services and support accordingly
[2025-01-21] MEDS: CRESTOR 10 MG PO (18:38)
[2025-01-21] MEDS: LOVENOX 40 MG SC (18:38)
[2025-01-21] MEDS: LR 1000 IV (18:38)
[2025-01-21] MEDS: VIBRAMYCIN 100 MG PO (22:08)
[2025-01-22] VITALS (17 sets, daily range): BP systolic 114–164; BP diastolic 72–113; PULSE 74–92
[2025-01-22] MEDS: DILAUDID 0.5 MG IV (04:09)
[2025-01-22] MEDS: LR 1000 IV (04:09)
[2025-01-22 04:33] LABS: Hematocrit 44.7 % (39.0-52.0); Hemoglobin 14.5 g/dL (13.0-18.0); Mean Corp Hgb Conc. 32.4 g/dL (33.0-37.0); Mean Corpuscular Volume 89.8 fL (80.0-94.0); Nucleated Red Blood Cells % 0 % (-); Platelet Count 198 10^3/uL (130-400); Red Cell Dist. Width 14.1 % (11.5-14.5)
--- NOTE | 2025-01-22 04:43 | PTCARENOTE ---
2114: Patient arrived from ER into room 3341 with LR infusing into RFA PIV. Patient able to move over onto new bed. Patient oriented x3. 2L NC. NSR on classroom monitor. Ate lunch box meal. Swallowing w/o issues. Admission questions done. Pt reports
chronic pain and aware of PRN Dilaudid available when needed. Reports 5/10 generalized pain; tolerable pain level. Awaiting pt to produce urine and sputum samples. Pt states he is usually independent at home. I encouraged the patient to reposition
self while in bed to prevent skin breakdown, pt agreed. Call mosquera and tray table within reach. Bed alarm set for safety.
0400: Patient reports 8/10 whole body/generalized pain and requesting pain medication. PRN IV Dilaudid provided per the SEP. Labs drawn and sent. Call mosquera and tray table left within reach. Bed alarm set.
[2025-01-22 04:58] LABS: Blood Urea Nitrogen 15 mg/dl (9-20); Calcium 9.2 mg/dl (8.4-10.2); Carbon Dioxide 33 mmol/L (22-30); Chloride 105 mmol/L (98-107); Estimated Creatinine Clearance > 125 ml/min; Glucose 91 mg/dl (70-99); Potassium 4.1 mmol/L (3.5-5.1); Sodium 140 mmol/L (135-145); eGFR > 60.00
[2025-01-22] MEDS: SYNTHROID 100 MCG PO (06:26)
[2025-01-22] MEDS: PROTONIX 40 MG PO (09:11)
[2025-01-22] MEDS: ASPIR LOW (ENTERIC COATED) 81 MG PO (09:11)
[2025-01-22] MEDS: VIBRAMYCIN 100 MG PO (09:11)
--- NOTE | 2025-01-22 09:43 | CM ---
Reviewed the chart notes. PT/OT evaluations pending, ordered today. CM continues to be available to patient/family and is monitoring medical plan for needs at discharge.
Plan: Discharge to home when medically stable. No needs anticipated at this time.
[2025-01-22] MEDS: SYMBICORT 160/4.5 MCG INHALER 2 PUFF INH ×2 (10:13→21:16)
[2025-01-22] MEDS: LYRICA 150 MG PO ×2 (10:32→19:21)
[2025-01-22] MEDS: MOTRIN 600 MG PO (10:33)
[2025-01-22] MEDS: VITAMIN D3 (cholecalciferol) 25 MCG PO (10:33)
[2025-01-22] MEDS: STERILE WATER FOR INJECTION 10 ML IV (10:34)
[2025-01-22] MEDS: ROCEPHIN 1000 MG IV (10:35)
[2025-01-22] MEDS: ROXICODONE 20 MG PO ×3 (11:19→23:01)
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
[2025-01-22 14:33] LABS: Urine Character Clear (Clear)
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
[2025-01-22] MEDS: SINGULAIR 10 MG PO (18:07)
[2025-01-22] MEDS: LOVENOX 40 MG SC (18:07)
[2025-01-22] MEDS: CRESTOR 10 MG PO (18:07)
[2025-01-22] MEDS: PAXIL 40 MG PO (18:07)
--- NOTE | 2025-01-22 18:37 | PTCARENOTE ---
OOB to bathroom few times today, Remains AAOx3 GCS 15, LC and weaned off O2- 94% on RAIR. Appetite poor, refused breakfast, small lunch, small dinner. Continent b/b- UA sent this shift. No sputum produced. VSS afebrile.
[2025-01-23] VITALS (11 sets, daily range): BP systolic 111–166; BP diastolic 70–103; PULSE 77–90
[2025-01-23 03:32] LABS: Hematocrit 42.0 % (39.0-52.0); Hemoglobin 14.0 g/dL (13.0-18.0); Mean Corp Hgb Conc. 33.3 g/dL (33.0-37.0); Mean Corpuscular Volume 89.0 fL (80.0-94.0); Nucleated Red Blood Cells % 0 % (-); Platelet Count 187 10^3/uL (130-400); Red Cell Dist. Width 13.6 % (11.5-14.5)
[2025-01-23 03:56] LABS: Blood Urea Nitrogen 12 mg/dl (9-20); Calcium 9.3 mg/dl (8.4-10.2); Carbon Dioxide 32 mmol/L (22-30); Chloride 102 mmol/L (98-107); Estimated Creatinine Clearance > 125 ml/min; Glucose 91 mg/dl (70-99); Potassium 3.8 mmol/L (3.5-5.1); Sodium 138 mmol/L (135-145); eGFR > 60.00
[2025-01-23] MEDS: SYNTHROID 100 MCG PO (05:56)
[2025-01-23] MEDS: ROXICODONE 20 MG PO ×4 (05:56→23:26)
[2025-01-23] MEDS: SYMBICORT 160/4.5 MCG INHALER 2 PUFF INH ×2 (08:03→18:12)
[2025-01-23] MEDS: PAXIL 40 MG PO (08:46)
[2025-01-23] MEDS: ASPIR LOW (ENTERIC COATED) 81 MG PO (08:46)
[2025-01-23] MEDS: LYRICA 150 MG PO ×2 (08:46→20:43)
[2025-01-23] MEDS: PROTONIX 40 MG PO (08:46)
[2025-01-23] MEDS: VITAMIN D3 (cholecalciferol) 25 MCG PO (08:47)
--- NOTE | 2025-01-23 08:57 | W.PN.ID1 ---
Date of Service
Date of Service: January 23, 2025
Today's Communication
Discontinue further ceftriaxone.
Assessment / Plan
Leukocytosis; improved
Fever
Encephalopathy; improved
Psoriatic arthritis
Lupus
Rheumatoid arthritis
Gout
Asthma
Dyslipidemia
GERD
Lindsey's esophagus
Chronic pain
Recommendations:
Cultures negative thus far. White count remains normal, with normal differential.
D/C ceftriaxone with close observation.
Will continue to monitor pending blood cultures.
Follow white count and temperature curve.
����������������������������������������������������������
Chief Complaint
-: Fever
Subjective / Review of Systems
Patient seen and examined. Reports feeling improved at this time. No recurrence of fevers.
Vital Signs / Physical Exam
Vital Signs
Vital Signs
Temp Pulse Resp BP Pulse Ox
98.0 F 88 16 149/86 95
01/23/25 07:53 01/23/25 08:06 01/23/25 08:06 01/23/25 08:00 01/22/25 19:30
Physical Exam
Constitutional: No Acute Distress, Comfortable and Non-toxic
Eyes: Sclera Anicteric
Cardiovascular: S1/S2; Negative S3/S4
Pulmonary: Non Labored
Gastrointestinal: Soft, Non Tender and Non Distended
Neurological: Awake, Alert and Oriented
Psychological: Calm
Objective Data
Lab Data
Lab Results
01/23/25 03:05
01/23/25 03:05
PT 13.7 Sec (11.4-14.6) 01/21/25 11:35
INR 1.00 01/21/25 11:35
APTT 25.0 Sec (23.4-35.0) 01/21/25 11:35
Estimated Creat Clear > 125 ml/min 01/23/25 03:05
Lactic Acid Cancelled 01/21/25 16:00
Total Bilirubin 0.7 mg/dl (0.2-1.3) 01/21/25 11:35
AST 37 U/L (17-59) 01/21/25 11:35
ALT 27 U/L (0-50) 01/21/25 11:35
Alkaline Phosphatase 79 U/L (38-126) 01/21/25 11:35
Most recent labs reviewed.
Micro Results:
01/21/25 12:26 Blood Culture - Preliminary
Blood/Venous No Growth in 24 hours- Final report to follow
01/22/25 04:30 Legionella Urinary Antigen - Final
Urine Negative for Legionella pneumophila Serogroup 1 antigen.
A negative result does not rule out the possiblity of
Legionella infection due to other serogroups or species of
Legionella. Clinical correlation is recommended.
Streptococcus pneumoniae Antigen (M - Final
Negative for Streptococcus pneumoniae antigen.
A negative result does not exclude infection with
Streptococcus pneumoniae. Clinical correlation is
recommended.
Imaging:
01/22/2025 CXR (2 view): lungs are clear although limited inspiration noted. No pleural effusion or pneumothorax. Heart is enlarged. There are postsurgical changes of the sternum and mediastinum.
01/21/2025 CT head: no acute abnormalities. No intracranial hemorrhage. No abnormal extra-axial fluid collections. No focal areas of diminished density to suggest recent infarct.
Care Review
Plan reviewed with: Nurse
[2025-01-23] MEDS: STERILE WATER FOR INJECTION IV (09:18)
[2025-01-23] MEDS: ROCEPHIN IV (09:18)
--- NOTE | 2025-01-23 09:43 | PTCARENOTE ---
Report called to [place] will transfer to [phone].
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
[2025-01-23] MEDS: CRESTOR 10 MG PO (18:11)
[2025-01-23] MEDS: SINGULAIR 10 MG PO (18:11)
[2025-01-23] MEDS: LOVENOX 40 MG SC (18:11)
[2025-01-24 03:29] VITALS: BP 147/83
[2025-01-24] MEDS: ROXICODONE 20 MG PO ×2 (06:24→11:59)
[2025-01-24] MEDS: SYNTHROID 100 MCG PO (06:24)
[2025-01-24 06:29] LABS: Hematocrit 41.0 % (39.0-52.0); Hemoglobin 13.6 g/dL (13.0-18.0); Mean Corp Hgb Conc. 33.2 g/dL (33.0-37.0); Mean Corpuscular Volume 89.1 fL (80.0-94.0); Nucleated Red Blood Cells % 0 % (-); Platelet Count 219 10^3/uL (130-400); Red Cell Dist. Width 13.8 % (11.5-14.5)
[2025-01-24 06:48] LABS: Blood Urea Nitrogen 10 mg/dl (9-20); Calcium 9.2 mg/dl (8.4-10.2); Carbon Dioxide 33 mmol/L (22-30); Chloride 101 mmol/L (98-107); Estimated Creatinine Clearance > 125 ml/min; Glucose 94 mg/dl (70-99); Potassium 3.8 mmol/L (3.5-5.1); Sodium 140 mmol/L (135-145); eGFR > 60.00
[2025-01-24 07:00] VITALS: BP 140/92
[2025-01-24] MEDS: SYMBICORT 160/4.5 MCG INHALER 2 PUFF INH (07:49)
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
[2025-01-24] MEDS: VITAMIN D3 (cholecalciferol) 25 MCG PO (08:34)
[2025-01-24] MEDS: ASPIR LOW (ENTERIC COATED) 81 MG PO (08:34)
[2025-01-24] MEDS: LYRICA 150 MG PO (08:34)
[2025-01-24] MEDS: PAXIL 40 MG PO (08:34)
[2025-01-24] MEDS: PROTONIX 40 MG PO (08:34)
--- NOTE | 2025-01-24 11:02 | W.DCSUMMARY ---
Discharge Summary
Discharge Data
Date of Admission: 01/21/25
Date of Discharge: 01/24/25
Total time spent discharging patient (in min): 35
-
Pending Results: No
Hospital Course
Patient is 69 years old male with psoriatic arthritis, lupus, rheumatoid arthritis, gout, asthma, dyslipidemia, GERD, came into the hospital with mental status changes and fever. Neurology evaluated patient due to potential stroke alert to the ED.
Neurology felt there was no need for any further neurological workup. He did have fevers and leukocytosis and he is immunocompromised so he was started on broad-spectrum antibiotics. Subsequently the etiology of the fever was not clear so ID was
consulted. ID also felt there was no clear-cut source and stopped antibiotics and observed him. He did well off antibiotics. He remained hemodynamically stable, his mental status back to his baseline, and he has remained afebrile and normal white
blood cell count. It could have been a viral etiology of his presentation. In any event, patient is doing well and he is going to be discharged in relatively stable condition today.
Discharge duration: 35 minutes
Discharge Plan
-
Patient Disposition: Home (Routine Discharge)
Discharge Diagnosis/Procedures: Acute metabolic encephalopathy. Sepsis unclear source probable viral. History of systemic lupus. History of psoriatic arthritis. History of gout. History of chronic pain on chronic narcotics. History of
rheumatoid arthritis. History of asthma.
Diet: Low Cholesterol
Activity: As tolerated
Blood Work: Please PCP to order CBC, BMP within 1 week
Referrals:
KAYE MUNGUIA [Other] - in less than 1 week
Prescriptions:
Continued
omeprazole 20 MG capsule,delayed release(DR/EC)
20 mg PO DAILY
levothyroxine 100 MCG tablet
100 mcg PO DAILY AT 0700
montelukast 10 MG tablet
10 mg PO QPM
Combivent Respimat 1 PUFF mist
2 puff inhalation R Q4HPRN PRN (Reason: SOB/WHEEZING)
oxycodone 20 mg Tablet
40 mg PO BID
fluticasone furoate-vilanterol [Breo Ellipta] 200-25 mcg/dose Blister With Device
1 inh INHALATION R DAILY
midodrine 5 mg Tablet
5 mg PO DAILY
therapeutic multivitamin Tablet
1 tab PO DAILY
acetaminophen [Tylenol Extra Strength] 500 mg Tablet
1,000 mg PO BID
paroxetine HCl [Paxil] 40 mg Tablet
40 mg PO DAILY
rosuvastatin [Crestor] 10 mg Tablet
10 mg PO QPM
pregabalin [Lyrica] 150 mg Capsule
150 mg PO BID
cholecalciferol (vitamin D3) [Vitamin D3] 25 mcg (1,000 unit) Tablet
25 mcg PO DAILY
Cosentyx 150 mg/mL Syringe
150 mg SC MONTHLY
Discharge Orders:
Discharge Patient (As Directed); Ordered 01/24/25
Ordered By: Gordon Colon
Discharge Date and Time
Discharge Date/Time: 01/24/25 13:38
Print Language: [place]
--- NOTE | 2025-01-24 11:29 | CM ---
Chart reviewed and patient is for discharge to home today, no needs.
Plan; Home no needs
[2025-01-24 13:22] VITALS: BP 136/72
[2025-01-24 14:22] VITALS: BP 136/72
== END 2025-01-24 13:38 | disposition home or self-care (01) | DRG 871 ==
LOC: 4 WEST ACU 14:41
PROVIDERS: Emergency Medicine; ADMITTING PHYSICIAN Hospitalist; CONSULT PHYSICIAN Internal Medicine Infectious Disease; EMERGENCY PHYSICIAN Emergency Medicine; OTHER PHYSICIAN Psychiatry & Neurology Neurology
DX: A41.9 Sepsis, unspecified organism (principal); G92.8 Other toxic encephalopathy; J18.9 Pneumonia, unspecified organism; J96.01 Acute respiratory failure with hypoxia; F11.20 Opioid dependence, uncomplicated; D84.9 Immunodeficiency, unspecified; J45.909 Unspecified asthma, uncomplicated; E78.00 Pure hypercholesterolemia, unspecified; E89.0 Postprocedural hypothyroidism; G89.29 Other chronic pain; M06.9 Rheumatoid arthritis, unspecified; M32.9 Systemic lupus erythematosus, unspecified; K21.9 Gastro-esophageal reflux disease without esophagitis; Z86.711 Personal history of pulmonary embolism; I25.10 Atherosclerotic heart disease of native coronary artery without angina pectoris; F41.9 Anxiety disorder, unspecified; E66.9 Obesity, unspecified; Z68.35 Body mass index [BMI] 35.0-35.9, adult; F32.A Depression, unspecified; G47.33 Obstructive sleep apnea (adult) (pediatric); I10 Essential (primary) hypertension; K22.70 Barrett's esophagus without dysplasia; L40.50 Arthropathic psoriasis, unspecified; Z86.16 Personal history of COVID-19; Z87.01 Personal history of pneumonia (recurrent); Z98.84 Bariatric surgery status
CPT/HCPCS: 70450; 71046; 80048; 80053; 81003; 82140; 82962; 83605; 85025; 85610; 85730; 87040; 87070; 87205; 87449; 87899; 93005; 93970; 94640; 96361; 96365; 96366; 96375; 97163; 97166; 99285